=== PATIENT | female | born 1935 | race Caucasian/White ===

== ENCOUNTER 2019-09-02 09:58 | Inpatient (IN) ==
[2019-09-02] MEDS ORDERED: ONDANSETRON 4 MG/2 ML VIAL IV PRN (13:25)
[2019-09-02] MEDS ORDERED: MAGNESIUM HYDROXIDE SUSP 30 ML UDCUP PO PRN (13:25)
[2019-09-02 15:13] LABS: Basophils # 0.1 10*3/uL (0.0-0.2); Basophils % 0.9 % (0.0-0.8); Eosinophils # 0.2 10*3/uL (0.0-0.87); Eosinophils % 1.4 % (0.00-10.9); Hematocrit 37.2 VOL% (35.7-47.0); Hemoglobin 12.3 GM/DL (12.0-16.0); Immature Granulocytes % 0.5 %; Immature Granulocytes Absolute 0.05 #; Lymphocytes # 1.9 10*3/uL (1.4-4.0); Mean Corpuscular HGB Conc 33.1 GM/DL (32-36); Mean Platelet Volume 10.3 FL (9.6-12.0); Monocytes % 7.3 % (1.7-12.7); Neutrophils % 71.9 % (38.7-73.9); Platelet Count 278 T/CUMM (130-400); Red Cell Distribution Width 13.3 % (9.3-17.3); White Blood Count 10.5 T/CUMM (4-12)
[2019-09-02 15:39] LABS: Alanine Aminotransferase 19 U/L (13-56); Albumin 3.5 G/DL (3.4-5.0); Alkaline Phosphatase 75 U/L (45-117); Aspartate Amino Transferase 16 U/L (0-37); Bilirubin,Total < 0.39 MG/DL (0.2-1.0); Blood Urea Nitrogen 16 MG/DL (7-18); Calcium 9.1 MG/DL (8.5-10.1); Estimated Glom Filtration Rate 68 ML/MIN; Glucose 97 MG/DL (74-106); Osmolality,Calculated 260.8 MOS/KG (273-304); Total Protein 7.4 G/DL (6.4-8.3)
[2019-09-02] MEDS: PANTOPRAZOLE 40 MG TABLET PO SCH (16:06)
[2019-09-02] MEDS: DEXTROSE 5% NACL 0.45% 1,000 ML IV SCH (16:08)
[2019-09-02 17:35] LABS: Apearance,Urine CLEAR (Clear); Bacteria,Urine Occasional /HPF (Few); Bilirubin,Urine Negative (Negative); Blood, Urine Negative (Negative); Glucose,Urine (UA) Negative (Negative); Hyaline Casts,Urine 1 /LPF (0-3); Ketones,Urine Negative (Negative); Mucus,Urine Occasional /LPF (Occasional); Nitrite,Urine Negative (Negative); Protein,Urine Negative; RBC,Urine 1 /HPF (0-4); Squamous Epithelial Cell,Urine Occasional /HPF (0-10); Urine Color Yellow (Yellow); Urine Urobilinogen < 2.0 EU/DL (0.2-1.0); WBC,Urine 2 /HPF (0-6)
[2019-09-02] MEDS ORDERED: ENOXAPARIN 40 MG/0.4 ML SYRINGE SUBCUT SCH (18:00)
[2019-09-02] MEDS: ASCORBIC ACID 500 MG TABLET PO SCH (21:14)
[2019-09-03] MEDS: DEXTROSE 5% NACL 0.45% 1,000 ML IV SCH (03:13)
[2019-09-03 05:47] LABS: Calcium 8.4 MG/DL (8.5-10.1); Risk Ratio 2.33; VLDL CHOLESTEROL 7.4 MG/DL
[2019-09-03] MEDS ORDERED: ROPIVACAINE 0.5% 30 ML VIAL ONE (06:41)
[2019-09-03] MEDS ORDERED: DEXAMETHASONE 4 MG/1 ML VIAL ONE (06:41)
[2019-09-03] MEDS: amLODIPine 5 MG TABLET PO SCH (06:43)
[2019-09-03] MEDS: lisinopriL 10 MG TABLET PO SCH (06:43)
[2019-09-03] MEDS ORDERED: BACITRACIN OINT 0.9 GM PACK TOP ONE (06:46)
[2019-09-03] MEDS ORDERED: CLINDAMYCIN 600 MG/4 ML VIAL ONE (07:12)
[2019-09-03] MEDS ORDERED: MORPHINE 4 MG/1 ML VIAL IV PRN (07:38)
[2019-09-03] MEDS ORDERED: propofoL 200 MG/20 ML VIAL IV ONE (09:06)
[2019-09-03] MEDS ORDERED: PHENYLEPHRINE DRIP 20 MG/250 ML PREMIX IV ONE (09:06)
[2019-09-03] MEDS ORDERED: GLYCOPYRROLATE 0.4 MG/2 ML VIAL ONE (09:07)
[2019-09-03] MEDS ORDERED: ePHEDrine 50 MG/ML VIAL ONE (09:07)
[2019-09-03] MEDS ORDERED: ROCURONIUM 100 MG/10 ML VIAL IV ONE (09:07)
[2019-09-03] MEDS ORDERED: NEOSTIGMINE 10 MG/10 ML VIAL ONE (09:07)
[2019-09-03] MEDS ORDERED: LIDOCAINE 1% 5 ML VIAL ONE (09:07)
[2019-09-03] MEDS ORDERED: fentaNYL 100 MCG/2 ML VIAL ONE (09:07)
[2019-09-03 09:21] LABS: Apearance,Urine CLEAR (Clear); Bilirubin,Urine Negative (Negative); Blood, Urine Negative (Negative); Glucose,Urine (UA) Negative (Negative); Ketones,Urine Negative (Negative); Mucus,Urine Occasional /LPF (Occasional); Nitrite,Urine Negative (Negative); Protein,Urine Negative; RBC,Urine <1 /HPF (0-4); Squamous Epithelial Cell,Urine Occasional /HPF (0-10); Urine Color Straw (Yellow); Urine Specific Gravity 1.008 (1.001-1.035); Urine Urobilinogen < 2.0 EU/DL (0.2-1.0); WBC,Urine <1 /HPF (0-6)
[2019-09-03] MEDS: ASCORBIC ACID 500 MG TABLET PO SCH ×2 (12:07→20:31)
[2019-09-03] MEDS: DOCUSATE SODIUM 100 MG CAPSULE PO SCH ×2 (12:07→20:31)
[2019-09-03] MEDS: PANTOPRAZOLE 40 MG TABLET PO SCH (12:07)
[2019-09-03] MEDS: CHOLECALCIFEROL 5,000 UNIT TABLET PO SCH (12:07)
[2019-09-03] MEDS ORDERED: CLINDAMYCIN INJ 600 MG in PREMIX 1 EACH IV ONE (16:52)
[2019-09-04 06:17] LABS: Basophils % 0.1 % (0.0-0.8); Eosinophils % 0.1 % (0.00-10.9); Hematocrit 31.2 VOL% (35.7-47.0); Hemoglobin 10.5 GM/DL (12.0-16.0); Immature Granulocytes % 0.6 %; Immature Granulocytes Absolute 0.09 #; Lymphocytes # 1.5 10*3/uL (1.4-4.0); Lymphocytes % 10.3 % (21.3-54.2); Mean Corpuscular HGB Conc 33.7 GM/DL (32-36); Mean Corpuscular Volume 91.2 FL (87-102); Mean Platelet Volume 11.1 FL (9.6-12.0); Monocytes % 6.5 % (1.7-12.7); Neutrophils % 82.4 % (38.7-73.9); Platelet Count 231 T/CUMM (130-400); Red Blood Count 3.42 MC/CUMM (3.8-5.5); Red Cell Distribution Width 13.5 % (9.3-17.3); White Blood Count 14.8 T/CUMM (4-12)
[2019-09-04 06:46] LABS: Calcium 8.3 MG/DL (8.5-10.1); Osmolality,Calculated 258.8 MOS/KG (273-304)
[2019-09-04] MEDS: FONDAPARINUX 2.5 MG/0.5 ML SYRINGE SUBCUT SCH (07:02)
[2019-09-04] MEDS: DOCUSATE SODIUM 100 MG CAPSULE PO SCH ×2 (08:55→20:53)
[2019-09-04] MEDS: lisinopriL 10 MG TABLET PO SCH (08:55)
[2019-09-04] MEDS: amLODIPine 5 MG TABLET PO SCH (08:55)
[2019-09-04] MEDS: ASCORBIC ACID 500 MG TABLET PO SCH ×2 (08:56→20:53)
[2019-09-04] MEDS: CHOLECALCIFEROL 5,000 UNIT TABLET PO SCH (08:56)
[2019-09-04] MEDS: PANTOPRAZOLE 40 MG TABLET PO SCH (08:56)
[2019-09-05] MEDS: FONDAPARINUX 2.5 MG/0.5 ML SYRINGE SUBCUT SCH (05:13)
[2019-09-05 06:04] LABS: Basophils # 0.1 10*3/uL (0.0-0.2); Basophils % 0.5 % (0.0-0.8); Eosinophils # 0.1 10*3/uL (0.0-0.87); Eosinophils % 0.9 % (0.00-10.9); Hematocrit 32.2 VOL% (35.7-47.0); Hemoglobin 10.7 GM/DL (12.0-16.0); Immature Granulocytes % 0.4 %; Immature Granulocytes Absolute 0.04 #; Lymphocytes # 1.8 10*3/uL (1.4-4.0); Mean Corpuscular HGB Conc 33.2 GM/DL (32-36); Mean Platelet Volume 11.3 FL (9.6-12.0); Monocytes % 9.6 % (1.7-12.7); Neutrophils % 69.6 % (38.7-73.9); Platelet Count 234 T/CUMM (130-400); Red Cell Distribution Width 13.5 % (9.3-17.3); White Blood Count 9.6 T/CUMM (4-12)
[2019-09-05] MEDS: ACETAMINOPHEN 325 MG TABLET PO PRN ×2 (07:54→20:21)
[2019-09-05] MEDS: amLODIPine 5 MG TABLET PO SCH (10:13)
[2019-09-05] MEDS: PANTOPRAZOLE 40 MG TABLET PO SCH (10:13)
[2019-09-05] MEDS: ASCORBIC ACID 500 MG TABLET PO SCH ×2 (10:13→20:22)
[2019-09-05] MEDS: lisinopriL 10 MG TABLET PO SCH (10:13)
[2019-09-05] MEDS: DOCUSATE SODIUM 100 MG CAPSULE PO SCH ×2 (10:13→20:22)
[2019-09-05] MEDS: CHOLECALCIFEROL 5,000 UNIT TABLET PO SCH (10:14)
[2019-09-06] MEDS: FONDAPARINUX 2.5 MG/0.5 ML SYRINGE SUBCUT SCH (05:50)
[2019-09-06] MEDS: lisinopriL 10 MG TABLET PO SCH (08:14)
[2019-09-06] MEDS: amLODIPine 5 MG TABLET PO SCH (08:14)
[2019-09-06] MEDS: ACETAMINOPHEN 325 MG TABLET PO PRN (08:14)
[2019-09-06] MEDS: ASCORBIC ACID 500 MG TABLET PO SCH ×2 (08:14→21:31)
[2019-09-06] MEDS: CHOLECALCIFEROL 5,000 UNIT TABLET PO SCH (08:14)
[2019-09-06] MEDS: PANTOPRAZOLE 40 MG TABLET PO SCH (08:14)
[2019-09-06] MEDS: DOCUSATE SODIUM 100 MG CAPSULE PO SCH ×2 (08:14→21:31)
[2019-09-06] MEDS: OXYBUTYNIN 5 MG TABLET PO SCH ×3 (08:57→21:31)
[2019-09-06 09:11] LABS: Apearance,Urine CLOUDY (Clear); Bacteria,Urine Many /HPF (Few); Bilirubin,Urine Negative (Negative); Blood, Urine Moderate mg/dL (Negative); Glucose,Urine (UA) Negative (Negative); Ketones,Urine 5 mg/dL (Negative); Mucus,Urine Few /LPF (Occasional); Nitrite,Urine Negative (Negative); Protein,Urine 100 MG/DL; RBC,Urine 72 /HPF (0-4); Squamous Epithelial Cell,Urine Occasional /HPF (0-10); Urine Color Yellow (Yellow); Urine Specific Gravity 1.015 (1.001-1.035); Urine Urobilinogen < 2.0 EU/DL (0.2-1.0); WBC,Urine 678 /HPF (0-6)
[2019-09-06] MEDS ORDERED: cefTRIAXone 1,000 MG in SYRINGE 1 EACH IV ONE (13:00)
[2019-09-07 05:24] LABS: Basophils # 0.1 10*3/uL (0.0-0.2); Basophils % 0.8 % (0.0-0.8); Eosinophils # 0.2 10*3/uL (0.0-0.87); Hematocrit 30.8 VOL% (35.7-47.0); Hemoglobin 10.6 GM/DL (12.0-16.0); Immature Granulocytes % 0.4 %; Immature Granulocytes Absolute 0.04 #; Lymphocytes # 2.6 10*3/uL (1.4-4.0); Lymphocytes % 24.8 % (21.3-54.2); Mean Corpuscular HGB Conc 34.4 GM/DL (32-36); Mean Corpuscular Volume 89.3 FL (87-102); Monocytes % 9.1 % (1.7-12.7); Neutrophils % 62.9 % (38.7-73.9); Platelet Count 223 T/CUMM (130-400); Red Blood Count 3.45 MC/CUMM (3.8-5.5); Red Cell Distribution Width 13.4 % (9.3-17.3); White Blood Count 10.3 T/CUMM (4-12)
[2019-09-07] MEDS: FONDAPARINUX 2.5 MG/0.5 ML SYRINGE SUBCUT SCH (05:24)
[2019-09-07 06:00] LABS: Calcium 8.1 MG/DL (8.5-10.1); Osmolality,Calculated 256.9 MOS/KG (273-304)
[2019-09-07] MEDS ORDERED: SULFAMETHOX/TRIMETHOPRIM 800-160 MG TABLET PO SCH (09:00)
[2019-09-07] MEDS: DOCUSATE SODIUM 100 MG CAPSULE PO SCH (10:00)
[2019-09-07] MEDS: PANTOPRAZOLE 40 MG TABLET PO SCH (10:00)
[2019-09-07] MEDS: ASCORBIC ACID 500 MG TABLET PO SCH (10:00)
[2019-09-07] MEDS: OXYBUTYNIN 5 MG TABLET PO SCH (10:00)
[2019-09-07] MEDS: amLODIPine 5 MG TABLET PO SCH (10:00)
[2019-09-07] MEDS: CHOLECALCIFEROL 5,000 UNIT TABLET PO SCH (10:00)
[2019-09-07] MEDS: lisinopriL 10 MG TABLET PO SCH (10:02)
[2019-09-07 11:58] VITALS: BP 132/57
== END 2019-09-07 12:10 | disposition home health service (06) | DRG 481 ==
LOC: N.3W 13:51
PROVIDERS: ADMIT Family Medicine; ATTEND Family Medicine

== ENCOUNTER 2020-09-23 21:58 | Observation (INO) ==
[2020-09-24] MEDS ORDERED: methylPREDNISolone SOD SUC 125 MG/2 ML VIAL IV STA (01:55)
[2020-09-24 02:16] LABS: Basophils # 0.1 10*3/uL (0.0-0.2); Eosinophils # 0.3 10*3/uL (0.0-0.87); Eosinophils % 3.6 % (0.00-10.9); Hematocrit 37.3 VOL% (35.7-47.0); Hemoglobin 12.5 GM/DL (12.0-16.0); Immature Granulocytes % 0.3 %; Immature Granulocytes Absolute 0.03 #; Lymphocytes # 2.5 10*3/uL (1.4-4.0); Mean Corpuscular HGB Conc 33.5 GM/DL (32-36); Mean Corpuscular Volume 90.5 FL (87-102); Mean Platelet Volume 11.3 FL (9.6-12.0); Monocytes % 9.8 % (1.7-12.7); Neutrophils % 58.3 % (38.7-73.9); Platelet Count 238 T/CUMM (130-400); Red Blood Count 4.12 MC/CUMM (3.8-5.5); Red Cell Distribution Width 13.5 % (9.3-17.3); White Blood Count 9.4 T/CUMM (4-12)
[2020-09-24 02:28] LABS: Albumin 3.8 G/DL (3.4-5.0); Bilirubin,Total 0.4 MG/DL (0.20-1.00); Calcium 8.9 MG/DL (8.5-10.1); Osmolality,Calculated 263.5 MOS/KG (273-304); Total Protein 6.9 G/DL (6.4-8.2)
[2020-09-24] MEDS ORDERED: ALBUTEROL/IPRATROPIUM 3 ML NEB RESP TX STA (03:07)
[2020-09-24] MEDS ORDERED: ALBUTEROL/IPRATROPIUM 3 ML NEB RESP TX PRN (03:14)
[2020-09-24] MEDS ORDERED: ONDANSETRON 4 MG/2 ML VIAL IV PRN (03:14)
[2020-09-24] MEDS ORDERED: ACETAMINOPHEN 325 MG TABLET PO PRN (03:14)
[2020-09-24] MEDS: SODIUM CHLORIDE 0.9% 1,000 ML IV SCH ×4 (05:00→22:34)
[2020-09-24] MEDS: PANTOPRAZOLE 40 MG TABLET PO SCH (08:17)
[2020-09-24] MEDS ORDERED: CETIRIZINE 5 MG TABLET PO PRN (10:46)
[2020-09-24] MEDS: ENOXAPARIN 40 MG/0.4 ML SYRINGE SUBCUT SCH (11:08)
[2020-09-24] MEDS: amLODIPine 5 MG TABLET PO SCH (11:09)
[2020-09-24] MEDS: lisinopriL 10 MG TABLET PO SCH (11:09)
[2020-09-24] MEDS: BISOPROLOL 5 MG TABLET PO SCH (11:09)
[2020-09-24] MEDS: predniSONE 10 MG TABLET PO SCH (11:09)
[2020-09-24] MEDS: ASCORBIC ACID 500 MG TABLET PO SCH (20:55)
[2020-09-24] MEDS: ASPIRIN EC 325 MG TABLET PO SCH (20:55)
[2020-09-24] MEDS: CALCIUM (CARBONATE) 500 MG TABLET PO SCH (20:55)
[2020-09-25 06:48] LABS: Basophils % 0.1 % (0.0-0.8); Hematocrit 31.3 VOL% (35.7-47.0); Immature Granulocytes % 0.6 %; Immature Granulocytes Absolute 0.07 #; Lymphocytes # 1.8 10*3/uL (1.4-4.0); Mean Corpuscular HGB Conc 33.5 GM/DL (32-36); Mean Corpuscular Volume 91.8 FL (87-102); Mean Platelet Volume 11.1 FL (9.6-12.0); Monocytes % 8.7 % (1.7-12.7); Neutrophils % 76.6 % (38.7-73.9); Platelet Count 198 T/CUMM (130-400); Red Blood Count 3.41 MC/CUMM (3.8-5.5); Red Cell Distribution Width 13.6 % (9.3-17.3)
[2020-09-25 07:08] LABS: Hemoglobin 10.5 GM/DL (12.0-16.0); White Blood Count 12.6 T/CUMM (4-12)
[2020-09-25 07:12] LABS: Calcium 8.2 MG/DL (8.5-10.1); Osmolality,Calculated 274.7 MOS/KG (273-304); Potassium 3.6 MMOL/L (3.5-5.1)
[2020-09-25] MEDS ORDERED: CYANOCOBALAMIN 500 MCG TABLET PO SCH (09:00)
[2020-09-25] MEDS: amLODIPine 5 MG TABLET PO SCH (09:31)
[2020-09-25] MEDS: ASCORBIC ACID 500 MG TABLET PO SCH ×2 (09:31→22:58)
[2020-09-25] MEDS: CHOLECALCIFEROL 5,000 UNIT TABLET PO SCH (09:31)
[2020-09-25] MEDS: predniSONE 10 MG TABLET PO SCH (09:31)
[2020-09-25] MEDS: CALCIUM (CARBONATE) 500 MG TABLET PO SCH ×2 (09:32→22:57)
[2020-09-25] MEDS: PANTOPRAZOLE 40 MG TABLET PO SCH (09:32)
[2020-09-25] MEDS: lisinopriL 10 MG TABLET PO SCH (09:32)
[2020-09-25] MEDS: BISOPROLOL 5 MG TABLET PO SCH (09:32)
[2020-09-25] MEDS: MULTIVITAMIN (CENTRUM) TABLET PO SCH (09:33)
[2020-09-25] MEDS: SODIUM CHLOR 0.9% KCL 20 MEQ 20 MEQ/1,000 ML BAG IV SCH (09:41)
[2020-09-25] MEDS: ENOXAPARIN 40 MG/0.4 ML SYRINGE SUBCUT SCH (14:14)
[2020-09-25] MEDS: ASPIRIN EC 325 MG TABLET PO SCH (22:58)
[2020-09-26] MEDS: SODIUM CHLOR 0.9% KCL 20 MEQ 20 MEQ/1,000 ML BAG IV SCH (02:53)
[2020-09-26 05:23] LABS: Basophils # 0.1 10*3/uL (0.0-0.2); Basophils % 0.6 % (0.0-0.8); Eosinophils # 0.1 10*3/uL (0.0-0.87); Eosinophils % 0.5 % (0.00-10.9); Hematocrit 33.2 VOL% (35.7-47.0); Hemoglobin 11.3 GM/DL (12.0-16.0); Immature Granulocytes % 0.3 %; Immature Granulocytes Absolute 0.03 #; Lymphocytes # 2.6 10*3/uL (1.4-4.0); Lymphocytes % 24.3 % (21.3-54.2); Mean Corpuscular Volume 89.7 FL (87-102); Mean Platelet Volume 11.5 FL (9.6-12.0); Monocytes % 8.7 % (1.7-12.7); Neutrophils % 65.6 % (38.7-73.9); Platelet Count 213 T/CUMM (130-400); Red Cell Distribution Width 13.8 % (9.3-17.3); White Blood Count 10.7 T/CUMM (4-12)
[2020-09-26 05:54] LABS: Albumin 3.2 G/DL (3.4-5.0); Bilirubin,Total 0.5 MG/DL (0.20-1.00); Calcium 8.4 MG/DL (8.5-10.1); Osmolality,Calculated 270.8 MOS/KG (273-304); Potassium 3.6 MMOL/L (3.5-5.1); Total Protein 6.2 G/DL (6.4-8.2)
[2020-09-26] MEDS ORDERED: ALPRAZolam 0.25 MG TABLET PO SCH (09:00)
[2020-09-26] MEDS: ASCORBIC ACID 500 MG TABLET PO SCH (09:47)
[2020-09-26] MEDS: MULTIVITAMIN (CENTRUM) TABLET PO SCH (09:48)
[2020-09-26] MEDS: PANTOPRAZOLE 40 MG TABLET PO SCH (09:48)
[2020-09-26] MEDS: lisinopriL 10 MG TABLET PO SCH (09:48)
[2020-09-26] MEDS: BISOPROLOL 5 MG TABLET PO SCH (09:48)
[2020-09-26] MEDS: BENZONATATE 100 MG CAPSULE PO PRN ×2 (09:48→14:15)
[2020-09-26] MEDS: amLODIPine 5 MG TABLET PO SCH (09:48)
[2020-09-26] MEDS: CALCIUM (CARBONATE) 500 MG TABLET PO SCH (09:48)
[2020-09-26] MEDS: CHOLECALCIFEROL 5,000 UNIT TABLET PO SCH (09:48)
[2020-09-26 12:42] VITALS: BP 116/44
[2020-09-26] MEDS ORDERED: ALBUTEROL/IPRATROPIUM 3 ML NEB RESP TX SCH (13:00)
[2020-09-26] MEDS: ENOXAPARIN 40 MG/0.4 ML SYRINGE SUBCUT SCH (13:07)
[2020-09-26] MEDS ORDERED: AZITHROMYCIN 250 MG TABLET PO ONE (14:08)
[2020-09-26] MEDS ORDERED: ZALEPLON 5 MG CAPSULE PO SCH (21:00)
[2020-09-27] MEDS ORDERED: AZITHROMYCIN 250 MG TABLET PO SCH (09:00)
== END 2020-09-26 16:24 | disposition home or self-care (01) ==
LOC: N.ED 21:58 → N.TELEN 21:58
PROVIDERS: ADMIT Family Medicine; ATTEND Family Medicine